=== PATIENT | male | born 1985 | race Hispanic/Latino ===

== ENCOUNTER 2021-05-15 04:23 | Emergency (ER) | payer OTHER, SELFPAY ==
[~2021-05-15] VITALS: Ht 177.8 cm; Wt 183.7 kg
[~2021-05-15 04:23] MED LIST: ESOM20CA31 PO; ONDA8TAB12 PO; ONDA8TAB8 PO
[2021-05-15] MEDS ORDERED: IBUP-2077 PO (07:27)
[2021-05-15 07:31] VITALS: BP 142/84
== END 2021-05-15 07:39 | disposition home or self-care (01) ==
LOC: EDH 04:23
DX: U07.1 COVID-19 (principal); Z79.899 Other long term (current) drug therapy; Z90.49 Acquired absence of other specified parts of digestive tract
CPT/HCPCS: 87635; 87804 ×2; 99283; C9803

== ENCOUNTER → 2024-09-11 | Outpatient (CLI) | payer OTHER ==
[~2024-09-11] MED LIST changes: +IBUP-2077 PO; +LISI10TA24 PO; +ONDA-245 PO; -ONDA8TAB12 PO
--- NOTE | 2024-09-11 11:53 | HMCIMG ---
MR KNEE RIGHT WO HISTORY: Pain COMPARISON: None TECHNIQUE: MRI of the right knee was performed utilizing multiple pulse sequences in axial, coronal and sagittal planes. Patient was not given contrast through intravenous route. FINDINGS: The study is limited due to patient's large body habitus. No abnormal signal intensity is seen of the visualized bony structure. The anterior cruciate and posterior cruciate ligaments are grossly intact. The medial and lateral collateral ligaments are also intact. Quadriceps tendon and patellar tendon are within normal limits. There is intrasubstance tear involving the medial and lateral menisci. There is medial meniscal tear involving posterior horn with both superior and inferior articular extension. Tiny joint effusion is seen. No evidence of Arredondo's cyst is seen. IMPRESSION: 1. There is medial meniscal tear involving posterior horn with both superior and inferior articular extension. Tiny joint effusion is seen.
== END | disposition home or self-care (01) ==
LOC: RAH 10:43
PROVIDERS: ATTEND Family Medicine
DX: S83.241D Other tear of medial meniscus, current injury, right knee, subsequent encounter (principal); S83.91XD Sprain of unspecified site of right knee, subsequent encounter; S86.911D Strain of unspecified muscle(s) and tendon(s) at lower leg level, right leg, subsequent encounter; X58.XXXD Exposure to other specified factors, subsequent encounter
CPT/HCPCS: 73721

== ENCOUNTER 2024-09-30 11:34 | Emergency (ER) | payer BC, OTHER ==
[~2024-09-30] VITALS: Ht 177.8 cm; Wt 199.6 kg
--- NOTE | 2024-09-30 11:47 | EKG ---
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
[2024-09-30 12:13] LABS: BASOPHILS # (AUTO) 0.02 K/uL (0.00-0.20); BASOPHILS % (AUTO) 0.2 % (0.0-5.0); EOSINOPHILS # (AUTO) 0.01 K/uL (0.00-0.70); EOSINOPHILS % (AUTO) 0.1 % (0.0-8.0); HEMATOCRIT 46.1 % (42-54); IMMATURE GRANULOCYTE ABSOLUTE 0.04 K/uL (0-1); LYMPHOCYTES # (AUTO) 1.6 K/uL (1.0-4.8); MEAN CORPUSCULAR HEMOGLOBIN 32.3 pg (27.0-33.0); MEAN CORPUSCULAR HGB CONC 35.8 g/dL (32.0-36.0); MEAN CORPUSCULAR VOLUME 90.2 fL (79-99); MONOCYTES # (AUTO) 0.3 K/uL (0.1-1.0); NEUTROPHILS # (AUTO) 6.4 K/uL (1.8-7.7); NEUTROPHILS % (AUTO) 76.2 % (40.0-77.0); PLATELET COUNT (AUTO) 195 K/uL (130-400); RED BLOOD CELL COUNT(AUTO) 5.11 MIL/uL (4.50-6.20); RED CELL DISTRIBUTION WIDTH 12.7 % (11.0-15.5); WHITE BLOOD COUNT (AUTO) 8.3 K/uL (4.8-10.8)
[2024-09-30] MEDS: 0.9%NACL 1000ML 1,000 ML IV ONE (12:19)
[2024-09-30] MEDS: ondanSETRON 4MG INJ IVP ONE ×2 (12:19→15:00)
[2024-09-30] MEDS: FAMOTIDINE 20MG VIAL IV ONE (12:20)
[2024-09-30] MEDS: morPHINE 2 MG SYG IVP ONE ×2 (12:21→15:00)
[2024-09-30 12:25] LABS: CREATININE 1.1 mg/dL (0.5-1.3); POTASSIUM 4.1 mmol/L (3.5-5.1)
[2024-09-30 12:29] LABS: ALBUMIN 4.3 g/dL (3.5-5.0); BILIRUBIN,DIRECT 0.2 mg/dL (0.0-0.3); BILIRUBIN,TOTAL 1.4 mg/dL (0.2-1.0)
--- NOTE | 2024-09-30 12:41 | HMCIMG ---
Exam Type: CHEST 1VW Clinical Information: cp Comparison: None Findings: The lungs are clear of infiltrates. The heart is enlarged. Bony and soft tissue structures of the chest wall are unremarkable. IMPRESSION: Cardiomegaly. Clear lungs.
--- NOTE | 2024-09-30 12:50 | ERN ---
General Chief Complaint: Nausea,Vomiting,Diarrhea Stated Complaint: NAUSEA, VOMITING Time Seen by MD: 11:38 Time Seen by Midlevel: 11:38 Source: patient History of Present Illness Initial Comments The patient is a 38-year-old morbidly obese male presenting to the emergency department for evaluation of nausea/vomiting, and diffuse abdominal pain that has progressively worsened since Sunday x2 days ago. Denies any sick contacts. Denies any other symptoms Allergies: Coded Allergies: No Known Drug Allergies (Unverified Allergy, Unknown, 05/22/16) Home Meds Active Scripts Lisinopril (Lisinopril) 10 Mg Tablet, 1 TAB PO DAILY for 30 Days, #30 TAB 0 Refills Prov:LAURA SPRAGUE MD 11/08/21 Ibuprofen (Ibuprofen 800 mg Tab) 800 Mg Tab, 800 MG PO Q8H PRN for PAIN for 10 Days, #30 TAB Prov:NICK RICHEY MD 05/15/21 Reported Medications Esomeprazole Magnesium (Nexium) 20 Mg Capsule.dr, 20 MG PO AM, CAP 05/22/16 Ondansetron (Ondansetron Odt) 8 Mg Tab.rapdis, 8 MG PO Q8H PRN for NAUSEA, TAB 05/22/16 Ondansetron (Zofran Odt) 8 Mg Tab.rapdis, 8 MG PO Q8H PRN for NAUSEA, TAB 05/22/16 Past Medical History Past Medical History: High Cholesterol, Hypertension Past Surgical History: Cholecystectomy Surgical History Other: L ELBOW Social History Social History: Negative, Lives with family ROS Dictation CONSTITUTIONAL: Negative except for HPI HEAD/FACE: Negative except for HPI EENT: Negative except for HPI RESPIRATORY: Negative except for HPI GASTROINTESTINAL/ABDOMINAL: Negative except for HPI GENITOURINARY: Negative except for HPI MUSCULOSKELETAL: Negative except for HPI INTEGUMENTARY: Negative except for HPI NEUROLOGICAL/PSYCH: Negative except for HPI HEMATOLOGIC/LYMPHATIC: Negative except for HPI All Systems Negative, Except as noted above. 13 point review of systems assessed and all negative except for above. Physical Exam Physical Exam Dictation Vital Signs reviewed General Appearance: Alert, oriented x 3, no acute distress, actively vomiting during my examination, morbidly obese Head and Face: non-traumatic. Eyes: PERRL, pink conjunctivas, eyelid no trauma, anterior chamber with arcus senilis. Ears: Pinnas intact and no signs of trauma or erythema ear canals clear and no discharge TM no erythema Nose: No discharge, no bleeding. Oropharynx: Mouth normal, tongue pink, pharynx clear,no erythema, tonsils no exudates, no abscesses noted, mucous membrane moist Neck: Supple, non-tender, no thyromegaly, no masses, no JVD, no bruits Breast:Deferred Chest:No tenderness, no crepitus, no paradoxical movement, no retractions Lungs:Clear, well-ventilated, symmetric, no rales, no wheezing, no rhonchi, no stridor, good breath sounds bilaterally Heart: Regular rate, regular rhythm, no murmur, no gallops Vascular: no peripheral edema, Abdomen: Soft, positive bowel sounds, nondistended, no guarding, Diffuse abdominal tenderness, no rebound, no masses no hepatomegaly, no splenomegaly, no Zavala's sign, no hernias. Rectal: Deferred Genital: Deferred Neurological: Normal speech, motor function intact, sensory function intact Musculoskeletal: Neck nontender, full range of motion, back nontender, full range of motion, Extremities: nontender, full range of motion Skin: Color pink, dry, no turgor, no rash, no lacerations, no abrasions, no contusions. Lymphatic: Deferred Results Laboratory and Microbiology Lab and Micro Result Laboratory Tests Test 09/30/24 12:03 White Blood Count 8.3 K/uL (4.8-10.8) Red Blood Count 5.11 MIL/uL (4.50-6.20) Hemoglobin 16.5 g/dL (14.0-18.0) Hematocrit 46.1 % (42-54) Mean Corpuscular Volume 90.2 fL (79-99) Mean Corpuscular Hemoglobin 32.3 pg (27.0-33.0) Mean Corpuscular Hemoglobin Concent 35.8 g/dL (32.0-36.0) Red Cell Distribution Width 12.7 % (11.0-15.5) Platelet Count 195 K/uL (130-400) Mean Platelet Volume 11.7 fL (7.5-10.5) H Immature Granulocyte % (Auto) 0.5 % (0-1) Neutrophils (%) (Auto) 76.2 % (40.0-77.0) Lymphocytes (%) (Auto) 19.0 % (21.0-51.0) L Monocytes (%) (Auto) 4.0 % (3.0-13.0) Eosinophils (%) (Auto) 0.1 % (0.0-8.0) Basophils (%) (Auto) 0.2 % (0.0-5.0) Neutrophils # (Auto) 6.4 K/uL (1.8-7.7) Lymphocytes # (Auto) 1.6 K/uL (1.0-4.8) Monocytes # (Auto) 0.3 K/uL (0.1-1.0) Eosinophils # (Auto) 0.01 K/uL (0.00-0.70) Basophils # (Auto) 0.02 K/uL (0.00-0.20) Absolute Immature Granulocyte (auto 0.04 K/uL (0-1) Nucleated Red Blood Cells 0.0 % (0.0-0.19) Sodium Level 142 mmol/L (136-145) Potassium Level 4.1 mmol/L (3.5-5.1) Chloride Level 104 mmol/L (101-111) Carbon Dioxide Level 29 mmol/L (21-32) Blood Urea Nitrogen 7 mg/dL (7-18) Creatinine 1.1 mg/dL (0.5-1.3) Glomerular Filtration Rate Calc 89 mL/min (>90) Random Glucose 254 mg/dL (70-105) H Total Calcium 9.2 mg/dL (8.5-10.1) Total Bilirubin 1.4 mg/dL (0.2-1.0) H Direct Bilirubin 0.2 mg/dL (0.0-0.3) Aspartate Amino Transf (AST/SGOT) 38 U/L (10-37) H Alanine Aminotransferase (ALT/SGPT) 95 U/L (12-78) H Alkaline Phosphatase 89 U/L (50-136) Total Creatine Kinase 100 U/L (21-232) Troponin I High Sensitivity 6 ng/L (4-75) B-Type Natriuretic Peptide 17 pg/mL (0-100) Total Protein 8.0 g/dL (6.0-8.3) Albumin 4.3 g/dL (3.5-5.0) Lipase 22 U/L (16-77) Labs Reviewed?: Yes MDM MDM: Differential diagnosis: Gastroenteritis, small-bowel obstruction, dehydration There are no social concerns with this patient. Prescription drug management Prescriptions will include: Zofran, ketorolac, Pepcid Medical management and examination interpretation discussions were had by me with other qualified healthcare professionals as indicated for the patient's care. ED Course Orders Procedure Category Date Status Time Cbc With Differential LAB 09/30/24 Complete 11:38 Basic Metabolic Panel LAB 09/30/24 Complete 11:38 Hepatic Function Panel LAB 09/30/24 Complete 11:38 Lipase LAB 09/30/24 Complete 11:38 Urinalysis Profile LAB 09/30/24 Logged 11:38 0.9%Nacl 1000ml (Ns PHA 09/30/24 Complete 1000ml) 12:00 Ondansetron 4mg Inj PHA 09/30/24 Complete (Zofran 4mg Inj) 12:00 Famotidine 20mg Vial PHA 09/30/24 Complete (Pepcid 20mg Vial) 12:00 Morphine 2mg Syg PHA 09/30/24 Complete (Morphine 2mg Syg) 12:00 Ct Abdomen/Pelvis CT 09/30/24 Resulted W/Contrast 11:38 12 Lead Ekg Tracing- EKG 09/30/24 Complete Technical 11:42 Troponin I High LAB 09/30/24 Complete Sensitivity 12:00 B-Type Natriuretic LAB 09/30/24 Complete Peptide 12:00 Creatine Kinase, Total LAB 09/30/24 Complete 12:00 Bedside Glucose CPOE 09/30/24 Transmitted Fingerstick 12:02 Chest 1vw RAD 09/30/24 Resulted 12:05 Drug Screen Urine LAB 09/30/24 Logged 11:38 Iohexol (Omnipaque) PHA 09/30/24 Complete 14:40 Morphine 2mg Syg PHA 09/30/24 Complete (Morphine 2mg Syg) 15:00 Ondansetron 4mg Inj PHA 09/30/24 Complete (Zofran 4mg Inj) 15:00 Current Medications Medications (Trade) Dose Ordered Sig/Vishal Route PRN Reason Start Time Stop Time Status Last Admin Dose Admin Famotidine (Pepcid 20mg Vial) 20 mg ONCE ONCE IV 09/30/24 12:00 09/30/24 12:01 DC 09/30/24 12:20 Iohexol (Omnipaque) 75 ml STK-MED ONCE IV 09/30/24 14:40 09/30/24 14:43 DC Morphine Sulfate (morPHINE 2MG SYG) 2 mg ONCE ONCE IVP 09/30/24 12:00 09/30/24 12:01 DC 09/30/24 12:21 Morphine Sulfate (morPHINE 2MG SYG) 2 mg ONCE ONCE IVP 09/30/24 15:00 09/30/24 15:01 DC 09/30/24 15:00 Ondansetron HCl (zoFRAN 4MG INJ) 4 mg ONCE ONCE IVP 09/30/24 12:00 09/30/24 12:01 DC 09/30/24 12:19 Ondansetron HCl (zoFRAN 4MG INJ) 4 mg ONCE ONCE IVP 09/30/24 15:00 09/30/24 15:01 DC 09/30/24 15:00 Sodium Chloride 1,000 ml @ 0 mls/hr ONCE ONCE IV 09/30/24 12:00 09/30/24 12:01 DC 09/30/24 12:19 Vital Signs Date Time Temp Pulse Resp B/P (MAP) Pulse Ox O2 Delivery O2 Flow Rate FiO2 09/30/24 11:36 98.4 77 25 181/118 96 Room Air [address] [id number] IMAGING REPORT Signed PATIENT: RENEE GALLOWAY MR#: [id number] : 1985 SEX: M AGE: 38 LOCATION: [facility] ORDER 1141 STATUS: REG ER REPORT#: [id number] SERVICE 1138 REASON: LLQ abd pain with associated N/V ORDERING PHYSICIAN: CITLALY JOSHI PROCEDURE: ABD PEL W - CT ABDOMEN/PELVIS W/CONTRAST Exam Type: CT ABDOMEN/PELVIS W/CONTRAST Clinical Information: LLQ abd pain with associated N/V Comparison: None Contrast: 100 cc's Isovue 370 IV, no complications or adverse reactions CT Dose Index (CTDI): 31.60 mGy Dose Length Product (DLP): 1740.80 total mGy-cm Findings: No evidence of nephro or ureterolithiasis is found. No hydronephrosis or ureteral dilatation is seen. The lung bases are clear. The stomach is unremarkable. It shows no wall thickening. No gross ulceration is seen. It is not overly distended. There are no surrounding inflammatory changes. No wall lesions are identified to suggest cancer. The spleen is unremarkable. It is not enlarged. The pancreas shows normal anatomy. It is not fatty replaced. It shows no lesions. The pancreatic duct is not dilated. The gallbladder is surgically absent. The adrenal glands are unremarkable. There is no enlargement. No lesions are noted. The liver shows diffuse fatty infiltration. It shows no focal lesions. The liver is enlarged. The appendix is unremarkable. It shows no evidence of inflammation. No appendicolith is seen. The small bowel is unremarkable. There is no evidence of dilatation to suggest obstruction. No evidence of adynamic ileus is seen. There is no small bowel wall thickening to suggest enteritis. The colon is unremarkable. The urinary bladder is unremarkable. There is no wall thickening to suggest tumor or inflammation. There are no intraluminal calculi. There are no diverticula. There is no evidence of chronic bladder outlet obstruction. There is no evidence of urinary bladder distention to suggest urinary retention. The other pelvic structures are unremarkable. The bony and vascular structures are unremarkable for the patient's age. IMPRESSION: Hepatomegaly and fatty liver infiltration. Status post cholecystectomy. This study was performed using dose reduction techniques to include automated exposure control and/or adjustment of the mA and/or kV according to patient size. DICTATED BY: LAURA JOHNS MD DATE: 09/30/241537 ELECTRONICALLY SIGNED BY: LAURA JOHNS MD DATE: 09/30/24 [address] [id number] IMAGING REPORT Signed PATIENT: RENEE GALLOWAY MR#: [id number] : 1985 SEX: M AGE: 38 LOCATION: ED ORDER 07 STATUS: REG ER REPORT#: [id number] SERVICE 1204 REASON: cp ORDERING PHYSICIAN: CITLALY JOSHI PROCEDURE: CXR1VW - CHEST 1VW Exam Type: CHEST 1VW Clinical Information: cp Comparison: None Findings: The lungs are clear of infiltrates. The heart is enlarged. Bony and soft tissue structures of the chest wall are unremarkable. IMPRESSION: Cardiomegaly. Clear lungs. DICTATED BY: LAURA JOHNS MD DATE: 09/30/24 1239 ELECTRONICALLY SIGNED BY: LAURA JOHNS MD DATE: 09/30/24 1241 DX & DISP Disposition: Discharge Departure Impression: Primary Impression: Gastroenteritis Additional Impression: Fatty liver Condition: Stable Scripts Famotidine (Pepcid) 20 Mg Tablet 1 TAB PO BID for 30 Days, #60 TAB 0 Refills Prov: CITLALY JOSHI 09/30/24 Ketorolac Tromethamine (Ketorolac Tromethamine) 10 Mg Tablet 1 TAB PO TID for pain for 5 Days, #15 TAB 0 Refills Prov: CITLALY JOSHI 09/30/24 Ondansetron (Ondansetron Odt) 4 Mg Tab.rapdis 4 MG PO BID for 7 Days, #14 TAB Prov: CITLALY JOSHI 09/30/24 Additional Instructions: Your blood work today is unremarkable. Your electrolytes are normal. Your liver function tests are stable. Your cardiac enzymes are negative. Your EKG is normal. Your lipase level was normal which indicates no evidence of pancreatitis. Your CT scan of the abdomen/pelvis reveals a slightly enlarged liver due to fatty liver disease. Otherwise your CT scan is unremarkable. No evidence of small-bowel obstruction, or any other acute abnormalities was noted. You will need to follow up with your primary care doctor in 2-3 days for repeat evaluation. I have provided you with antinausea medication and pain medication for outpatient management. Referrals: [facility] (PCP) Time of Disposition: 15:54 I have reviewed the case, and I agree with I performed the substantive portion of the visit. I have reviewed and personally made and approve the management plan that is documented in the note by myself or the MACARIO. I acknowledge for responsibility for the patient's management plan. CITLALY JOSHI September 30, 2024 12:50
[2024-09-30] MEDS ORDERED: IOHEXOL-350 75 ML VIAL IV ONE (14:40)
--- NOTE | 2024-09-30 15:13 | NUR ---
PT IN CT AT THIS TIME
--- NOTE | 2024-09-30 15:41 | HMCIMG ---
Exam Type: CT ABDOMEN/PELVIS W/CONTRAST Clinical Information: LLQ abd pain with associated N/V Comparison: None Contrast: 100 cc's Isovue 370 IV, no complications or adverse reactions CT Dose Index (CTDI): 31.60 mGy Dose Length Product (DLP): 1740.80 total mGy-cm Findings: No evidence of nephro or ureterolithiasis is found. No hydronephrosis or ureteral dilatation is seen. The lung bases are clear. The stomach is unremarkable. It shows no wall thickening. No gross ulceration is seen. It is not overly distended. There are no surrounding inflammatory changes. No wall lesions are identified to suggest cancer. The spleen is unremarkable. It is not enlarged. The pancreas shows normal anatomy. It is not fatty replaced. It shows no lesions. The pancreatic duct is not dilated. The gallbladder is surgically absent. The adrenal glands are unremarkable. There is no enlargement. No lesions are noted. The liver shows diffuse fatty infiltration. It shows no focal lesions. The liver is enlarged. The appendix is unremarkable. It shows no evidence of inflammation. No appendicolith is seen. The small bowel is unremarkable. There is no evidence of dilatation to suggest obstruction. No evidence of adynamic ileus is seen. There is no small bowel wall thickening to suggest enteritis. The colon is unremarkable. The urinary bladder is unremarkable. There is no wall thickening to suggest tumor or inflammation. There are no intraluminal calculi. There are no diverticula. There is no evidence of chronic bladder outlet obstruction. There is no evidence of urinary bladder distention to suggest urinary retention. The other pelvic structures are unremarkable. The bony and vascular structures are unremarkable for the patient's age. IMPRESSION: Hepatomegaly and fatty liver infiltration. Status post cholecystectomy. This study was performed using dose reduction techniques to include automated exposure control and/or adjustment of the mA and/or kV according to patient size.
[2024-09-30 15:56] VITALS: BP 173/100; PULSE 75; RESP 20; TEMP 98.4; O2SAT 96
[2024-09-30] MEDS ORDERED: ONDA-243 PO (16:00)
[2024-09-30] MEDS ORDERED: FAMO-136 PO (16:00)
[2024-09-30] MEDS ORDERED: KETO10TA2 PO (16:00)
== END 2024-09-30 16:11 | disposition home or self-care (01) ==
LOC: EDH 11:34
DX: K52.9 Noninfective gastroenteritis and colitis, unspecified (principal); K76.0 Fatty (change of) liver, not elsewhere classified; E78.00 Pure hypercholesterolemia, unspecified; E66.01 Morbid (severe) obesity due to excess calories; I10 Essential (primary) hypertension; Z79.899 Other long term (current) drug therapy; Z90.49 Acquired absence of other specified parts of digestive tract
CPT/HCPCS: 99284; 74177; 96374; 96375; 71045; 96361; 82550; 80076; 84484; 80048; 83880; 83690; 85025; 36415; 96376; 93005; J3490; J2270 ×2; J7030; J2405 ×2; Q9967